=== PATIENT | female | born 1985 ===

== ENCOUNTER 2021-06-29 20:54 | Emergency (ER) | payer MEDICAID, SELFPAY ==
--- NOTE | ~2021-06-29 | XR_ITS ---
EXAMINATION: XR CHEST CLINICAL INFORMATION: Shortness of breath COMPARISON: 11/16/2016 TECHNIQUE: Frontal view of the chest was obtained. FINDINGS: Lung volumes are low. There is bronchovascular crowding but no focal consolidation or mass. No pleural effusion or pneumothorax. Cardiac mediastinal silhouette within normal limits for the lung volumes. XR/XR chest 1V IMPRESSION: Low lung volumes but no acute pulmonary disease.
[2021-06-29 21:00] VITALS: BP 145/85; PULSE 113; RESP 18; TEMP 36.9; O2SAT 95; BMI 52.7
[2021-06-29 21:51] LABS: Influenza A PCR NEGATIVE (Negative); Influenza B PCR NEGATIVE (Negative); Resp Syncy Virus RNA Qual PCR NEGATIVE (Negative)
[2021-06-29 21:52] LABS: SARS COV2 PCR INHOUSE POSITIVE (Negative)
[2021-06-30 00:24] VITALS: BP 135/70; PULSE 108; RESP 20; TEMP 38; O2SAT 98
[2021-06-30] MEDS: Acetaminophen 325 MG TABLET 975 MG PO (00:26)
--- NOTE | 2021-06-30 00:39 | ED_ITS ---
HPI - URI/Sore Throat General Chief Complaint: Upper Respiratory Symptoms Stated Complaint: fever, stuffy nose, stomach pain Time Seen by Provider: 06/30/21 00:20 Source: patient Mode of arrival: ambulatory Limitations: no limitations History of Present Illness HPI Narrative: 36-year-old female who previously healthy here with reports of cough, sore throat, subjective fevers, headache, body aches malaise for 2 days. Patient received Moderna vaccine times. No difficulty breathing, chest pain, leg swelling or pain. Related Data Allergies Allergy/AdvReac Type Severity Reaction Status Date / Time No Known Allergies Allergy Verified 06/29/21 21:00 Review of Systems Review of Systems: Yes all other systems are reviewed and are negative Constitutional: Constitutional: Reports no additional constitutional complaints, Reports body ache(s), Reports chills, Reports fever(s), Reports headache(s), Reports malaise and Denies weakness Eyes: Eyes: Reports no additional eye complaints and Denies change in vision ENT: Reports system reviewed and no additional complaints, except as documented, Denies dizziness, Reports headache(s), Denies nasal congestion, Denies nasal discharge, Denies neck pain and Reports sore throat Cardiovascular: Cardiovascular: Reports no additional cardiovascular complaints, Denies chest pain, Denies leg edema and Denies dyspnea Respiratory: Respiratory: Reports no additional respiratory complaints, Reports cough and Denies dyspnea Gastrointestinal: Gastrointestinal: Reports no additional gastrointestinal complaints, Denies abdominal pain, Denies diarrhea, Denies nausea and Denies vomiting Genitourinary: Genitourinary: Reports no additional female genitourinary complaints and Denies urinary incontinence Musculoskeletal: Musculoskeletal: Reports no additional musculoskeletal complaints, Denies back pain, Denies arthralgias, Denies joint swelling, Denies neck pain, Denies numbness and Denies tingling Integumentary/Breasts: Skin/Breast: Reports system reviewed and no additional complaints, except as docu and Denies rash Neurologic: Denies Abnormal speech present, Denies dizziness, Reports headache(s), Denies numbness, Denies tingling and Denies weakness PMFSH Past Medical History Attestation statement: The following information was validated with the patient. Source: old records reviewed and nursing notes reviewed Social History Social History Advance Directives: No Advance Directives Information Provided: No Physical Exam Vital Signs: Vital Signs: Last Vital Signs Temp 100.4 F 06/30/21 00:24 Pulse 108 H 06/30/21 00:24 Resp 20 06/30/21 00:24 BP 135/70 06/30/21 00:24 Pulse Ox 98 06/30/21 00:24 BMI result Body Mass Index 52.7 Const: General: cooperative, healthy appearing, comfortable and no acute distress Orientation/consciousness: patient oriented x3 Limitations: no limitations HENMT: Head: Yes normal to inspection Ears: hearing grossly normal bilaterally General nose exam: Normal external nose present Face and sinus: Yes normal facial exam Mouth: Normal oral and palatal mucosa present Throat: Yes posterior oropharynx normal Eyes: General: appearance normal, both eyes and all related structures Pupils: Equal, round and reactive pupils present Neck: Neck: Yes normal visual inspection Chest: Chest palpation & inspection: normal inspection of the chest Resp: Effort & Inspection: normal respiratory effort Auscultation: clear to auscultation bilaterally Cardio: Rate: tachycardic (mild tachycardic) Rhythm: regular rhythm Peripheral pulses: Peripheral pulses 2+ throughout GI: Inspection: Yes normal to inspection Palpation (GI): Soft to palpation and nontender Auscultation: normal bowel sounds Back/Spine/Pelvis: Thoracic/Lumbar Spine: thoracic and lumbar spine normal to inspection Skin: General skin exam: no rashes or lesions noted Neuro: General: patient oriented x3, no focal motor deficits and normal sensation to monofilament Cranial nerves: Yes Equal, round and reactive pupils present Cognition (Neuro): normal cognition Speech: No Abnormal speech present Gait exam (Neuro): Normal gait present Motor exam (neuro): 5/5 motor strength present throughout Extrem: General: Yes normal to inspection, Yes no pedal edema and Yes no calf tenderness Course Course Course Narrative: 36 yo female here with cough, sore throat, headache, subjective fevers, chills, body aches, malaise x 2 days. Patient has low-grade fever mild tachycardia on arrival. Will give Tylenol. Rapid COVID is positive. Chest x-ray shows no acute finding. No hypoxia, tachypnea. No reports of chest pain or difficulty breathing. Lung sounds are clear throughout Reviewed worrisome signs and symptoms of when to return to the emergency department. Comfortable discharge home. MDM - URI/Sore Throat Medical Records Attestation: I reviewed the patient's medical records. Lab Data Attestation: I reviewed the patient's lab results. Labs: Lab Results 06/29/21 Range/Units 21:07 Influenza Type A (PCR) NEGATIVE (Negative) Influenza Type B (PCR) NEGATIVE (Negative) RSV RNA Qual (PCR) NEGATIVE (Negative) SARS-CoV-2 RNA (RT-PCR) POSITIVE A (Negative) Discharge Plan Discharge Clinical Impression: COVID-19 Patient Disposition: Home, Self-Care Instructions: COVID-19 (Coronavirus Disease 2019) (ED) Additional Instructions: Cuarentena por un total de 10 d?as desde la aparici?n de los s?ntomas. Alternar motrin o tylenol para el dolor o la fiebre. Aumente los l?quidos, descanse. Regrese por falta de aire o dolor en el pecho. Referrals: ED Physician,Generic [Physician] - 2 days Stand Alone Forms: Work/School Release Interventions: ED Discharge Assessment Last Done: 06/30/21 00:41 Print Language: Turkmen
== END 2021-06-30 00:55 | disposition home or self-care (01) ==
PROVIDERS: Emergency Provider Internal Medicine
DX: U07.1 COVID-19 (principal)
CPT/HCPCS: 0241U; 71045; 99283

== ENCOUNTER 2022-09-19 13:14 | Emergency (ER) | payer OTHER, SELFPAY ==
--- NOTE | ~2022-09-19 | XR_ITS ---
EXAMINATION: XR CHEST CLINICAL INFORMATION: Chest pain, shortness of breath. COMPARISON: 07/17/2021 chest radiograph. TECHNIQUE: 2 views of the chest were obtained. FINDINGS: No significant abnormality is noted involving the heart, lungs, mediastinum, bony thorax or soft tissues. XR/XR chest 2V IMPRESSION: No acute cardiopulmonary process.
--- NOTE | 2022-09-19 13:24 | ED_ITS ---
HPI - Chest Pain General Chief Complaint: Chest Pain Stated Complaint: sharp pain in chest + arm pain Related Data Allergies Allergy/AdvReac Type Severity Reaction Status Date / Time No Known Allergies Allergy Verified 06/29/21 21:00 [facility] Social History Social History Advance Directives: No Advance Directives Information Provided: No Physical Exam Vital Signs: Vital Signs: Last Vital Signs Temp 98.2 F 09/19/22 13:30 Pulse 110 H 09/19/22 13:30 Resp 18 09/19/22 13:30 BP 168/96 H 09/19/22 13:30 Pulse Ox 94 09/19/22 13:30 O2 Del Method Room Air 09/19/22 13:30 BMI result Body Mass Index 49.6 Course Course Course Narrative: RME--37yo F w/ PMHx asthma c/o left upper chest pain x1 week with pedal edema and SOB. Pain constant x3 days Tachycardic 109 in triage, +b/l pedal edema, Lungs CTA EKG, Labs, CXR, COVID ordered Medical Decision Making Lab Data 09/19/22 16:49 09/19/22 16:49 Labs: Lab Results 09/19/22 09/19/22 09/19/22 Range/Units 14:07 14:07 16:49 WBC 8.8 (4.8-10.8) X10*3/uL RBC 4.62 (4.20-5.50) X10*6/uL Hgb 12.3 (12.0-16.0) g/dl Hct 38.4 (37.0-47.0) % MCV 83.1 (80.0-98.0) fL MCH 26.6 L (27.0-33.0) pg MCHC 32.0 (31.0-35.0) g/dl RDW 13.5 (11.0-16.0) % Plt Count 224 (160-400) X10*3/uL MPV 12.2 (9.4-12.3) fL Immature Gran % (Auto) 0.8 H (0.0-0.4) % Neut % (Auto) 64.4 (45-73) % Lymph % (Auto) 25.0 (20-40) % [place] % (Auto) 7.6 (2-11) % Eos % (Auto) 1.9 (0-4) % Baso % (Auto) 0.3 (0-2) % Lymph # (Auto) 2.2 (1.2-4.9) X10*3/uL [place] # (Auto) 0.7 (0.1-1.2) X10*3/uL Eos # (Auto) 0.2 (0.0-0.4) X10*3/uL Baso # (Auto) 0.0 (0.0-0.2) X10*3/uL Abs Immat Gran (auto) 0.07 H (0.00-0.03) X10*3/uL Absolute Neuts (auto) 5.6 (2.0-8.3) x10*3/uL Absolute Nucleated RBC 0.000 (0.0-0.012) X10*3/uL Nucleated RBC % (auto) 0.0 (0.0-0.2) /100WBC PT (10.0-13.1) SEC INR (0.9-1.1) Sodium (135-145) mmol/L Potassium (3.3-5.1) mmol/L Chloride (96-108) mmol/L Carbon Dioxide (22-29) mmol/L Anion Gap (12-20) BUN (9-16) mg/dL Creatinine (0.5-1.4) mg/dL Estim Creat Clear Calc Estimated GFR Random Glucose (60-115) mg/dL Calcium (8.4-10.2) mg/dL Total Bilirubin (0.0-1.0) mg/dL Direct Bilirubin (0.0-0.5) mg/dL AST (5-31) U/L ALT (0-31) U/L Alkaline Phosphatase (39-117) U/L Troponin I High Sens (<3.5-17.0) ng/L B-Natriuretic Peptide (<100) pg/mL Total Protein (6.5-8.0) g/dL Albumin (3.5-5.0) g/dL COVID-19 (CHANEL) Negative (Negative) COVID-19 Clin Com See Note Influenza Type A (BARRETT) Negative (Negative) Influenza Type B (BARRETT) Negative (Negative) Influenza A & B Note See Note 09/19/22 09/19/22 09/19/22 Range/Units 16:49 16:49 16:49 WBC (4.8-10.8) X10*3/uL RBC (4.20-5.50) X10*6/uL Hgb (12.0-16.0) g/dl Hct (37.0-47.0) % MCV (80.0-98.0) fL MCH (27.0-33.0) pg MCHC (31.0-35.0) g/dl RDW (11.0-16.0) % Plt Count (160-400) X10*3/uL MPV (9.4-12.3) fL Immature Gran % (Auto) (0.0-0.4) % Neut % (Auto) (45-73) % Lymph % (Auto) (20-40) % [place] % (Auto) (2-11) % Eos % (Auto) (0-4) % Baso % (Auto) (0-2) % Lymph # (Auto) (1.2-4.9) X10*3/uL [place] # (Auto) (0.1-1.2) X10*3/uL Eos # (Auto) (0.0-0.4) X10*3/uL Baso # (Auto) (0.0-0.2) X10*3/uL Abs Immat Gran (auto) (0.00-0.03) X10*3/uL Absolute Neuts (auto) (2.0-8.3) x10*3/uL Absolute Nucleated RBC (0.0-0.012) X10*3/uL Nucleated RBC % (auto) (0.0-0.2) /100WBC PT 11.7 (10.0-13.1) SEC INR 1.0 (0.9-1.1) Sodium 139 (135-145) mmol/L Potassium 4.2 (3.3-5.1) mmol/L Chloride 105 (96-108) mmol/L Carbon Dioxide 25 (22-29) mmol/L Anion Gap 13 (12-20) BUN 12 (9-16) mg/dL Creatinine 0.77 (0.5-1.4) mg/dL Estim Creat Clear Calc 129.8 Estimated GFR > 60 Random Glucose 155 H (60-115) mg/dL Calcium 8.7 (8.4-10.2) mg/dL Total Bilirubin 0.5 (0.0-1.0) mg/dL Direct Bilirubin < 0.2 (0.0-0.5) mg/dL AST 14 (5-31) U/L ALT 18 (0-31) U/L Alkaline Phosphatase 81 (39-117) U/L Troponin I High Sens < 3.5 (<3.5-17.0) ng/L B-Natriuretic Peptide (<100) pg/mL Total Protein 6.9 (6.5-8.0) g/dL Albumin 4.0 (3.5-5.0) g/dL COVID-19 (CHANEL) (Negative) COVID-19 Clin Com Influenza Type A (BARRETT) (Negative) Influenza Type B (BARRETT) (Negative) Influenza A & B Note 09/19/22 Range/Units 16:49 WBC (4.8-10.8) X10*3/uL RBC (4.20-5.50) X10*6/uL Hgb (12.0-16.0) g/dl Hct (37.0-47.0) % MCV (80.0-98.0) fL MCH (27.0-33.0) pg MCHC (31.0-35.0) g/dl RDW (11.0-16.0) % Plt Count (160-400) X10*3/uL MPV (9.4-12.3) fL Immature Gran % (Auto) (0.0-0.4) % Neut % (Auto) (45-73) % Lymph % (Auto) (20-40) % [place] % (Auto) (2-11) % Eos % (Auto) (0-4) % Baso % (Auto) (0-2) % Lymph # (Auto) (1.2-4.9) X10*3/uL [place] # (Auto) (0.1-1.2) X10*3/uL Eos # (Auto) (0.0-0.4) X10*3/uL Baso # (Auto) (0.0-0.2) X10*3/uL Abs Immat Gran (auto) (0.00-0.03) X10*3/uL Absolute Neuts (auto) (2.0-8.3) x10*3/uL Absolute Nucleated RBC (0.0-0.012) X10*3/uL Nucleated RBC % (auto) (0.0-0.2) /100WBC PT (10.0-13.1) SEC INR (0.9-1.1) Sodium (135-145) mmol/L Potassium (3.3-5.1) mmol/L Chloride (96-108) mmol/L Carbon Dioxide (22-29) mmol/L Anion Gap (12-20) BUN (9-16) mg/dL Creatinine (0.5-1.4) mg/dL Estim Creat Clear Calc Estimated GFR Random Glucose (60-115) mg/dL Calcium (8.4-10.2) mg/dL Total Bilirubin (0.0-1.0) mg/dL Direct Bilirubin (0.0-0.5) mg/dL AST (5-31) U/L ALT (0-31) U/L Alkaline Phosphatase (39-117) U/L Troponin I High Sens (<3.5-17.0) ng/L B-Natriuretic Peptide < 10 (<100) pg/mL Total Protein (6.5-8.0) g/dL Albumin (3.5-5.0) g/dL COVID-19 (CHANEL) (Negative) COVID-19 Clin Com Influenza Type A (BARRETT) (Negative) Influenza Type B (BARRETT) (Negative) Influenza A & B Note Discharge Plan Discharge Clinical Impression: Shortness of breath Patient Disposition: Elopement Discharge Date/Time: 09/19/22 19:39
--- NOTE | 2022-09-19 13:28 | ECG_ITS ---
Test Reason : cp Blood Pressure : / mmHG Vent. Rate : 095 BPM Atrial Rate : 095 BPM P-R Int : 148 ms QRS Dur : 076 ms QT Int : 336 ms P-R-T Axes : 048 033 016 degrees QTc Int : 422 ms Normal sinus rhythm Normal ECG No previous ECGs available Referred By: Amarilis Antoine Electronically Signed By:KARINA CORDOBA MD
[2022-09-19 13:30] VITALS: BP 168/96; PULSE 110; RESP 18; TEMP 36.8; O2SAT 94; BMI 49.6
[2022-09-19 14:28] LABS: IDNOW Serial# 9DB6401D
[2022-09-19 14:29] LABS: COVID-19 Test Negative (Negative); IDNOW Serial# BCCEAD1C; Influenza A Negative (Negative); Influenza B2 Negative (Negative)
[2022-09-19 16:54] LABS: MANUAL DIFF FLAG NO
[2022-09-19 16:56] LABS: Basophils Percent Auto 0.3 % (0-2); Eosinophils Absolute Auto 0.2 X10*3/uL (0.0-0.4); Eosinophils Percent Auto 1.9 % (0-4); Hematocrit 38.4 % (37.0-47.0); Hemoglobin 12.3 g/dl (12.0-16.0); Imm Gran Abs Auto 0.07 X10*3/uL (0.00-0.03); Imm Gran Pct Auto 0.8 % (0.0-0.4); Lymphocytes Absolute Auto 2.2 X10*3/uL (1.2-4.9); Mean Corpuscular Hemoglobin 26.6 pg (27.0-33.0); Mean Corpuscular Volume 83.1 fL (80.0-98.0); Mean Platelet Volume 12.2 fL (9.4-12.3); Monocytes Absolute Auto 0.7 X10*3/uL (0.1-1.2); Monocytes Percent Auto 7.6 % (2-11); Neutrophils Absolute Auto 5.6 x10*3/uL (2.0-8.3); Neutrophils Percent Auto 64.4 % (45-73); Platelet Count 224 X10*3/uL (160-400); Red Blood Count 4.62 X10*6/uL (4.20-5.50); Red Cell Distribution Width 13.5 % (11.0-16.0); White Blood Count 8.8 X10*3/uL (4.8-10.8)
[2022-09-19 17:01] LABS: Prothrombin Time 11.7 SEC (10.0-13.1)
[2022-09-19 17:15] LABS: Alanine Aminotransferase 18 U/L (0-31); Alkaline Phosphatase 81 U/L (39-117); Anion Gap 13 (12-20); Aspartate Amino Transferase 14 U/L (5-31); Bilirubin Direct < 0.2 mg/dL (0.0-0.5); Bilirubin Total 0.5 mg/dL (0.0-1.0); Blood Urea Nitrogen 12 mg/dL (9-16); Calcium 8.7 mg/dL (8.4-10.2); Carbon Dioxide 25 mmol/L (22-29); Chloride 105 mmol/L (96-108); Creatinine Clr Calc Pharmacy 129.8; Estimated Glomerular Filt Rate > 60; Glucose Random 155 mg/dL (60-115); Potassium 4.2 mmol/L (3.3-5.1); Sodium 139 mmol/L (135-145); Total Protein 6.9 g/dL (6.5-8.0)
[2022-09-19 17:17] LABS: B Type Natriuretic Peptide < 10 pg/mL (<100)
[2022-09-19 17:22] LABS: Troponin-I High Sensitivity < 3.5 ng/L (<3.5-17.0)
== END 2022-09-19 19:39 | disposition left against medical advice (07) ==
PROVIDERS: Physician Assistant; Emergency Provider Emergency Medicine
DX: R60.0 Localized edema (principal); R06.02 Shortness of breath; R00.0 Tachycardia, unspecified; Z20.822 Contact with and (suspected) exposure to COVID-19
CPT/HCPCS: 36415; 71046; 80048; 80076; 83880; 84484; 85025; 85610; 87502; 87635; 93005; 99283

== ENCOUNTER 2023-01-15 22:44 | Emergency (ER) | payer MEDICAID, SELFPAY ==
--- NOTE | ~2023-01-15 | XR_ITS ---
EXAMINATION: XR CHEST CLINICAL INFORMATION: Chest pain. COMPARISON: Chest radiograph 09/19/2022. TECHNIQUE: 2 views of the chest were obtained. FINDINGS: Stable prominence of the cardiomediastinal silhouette. Low lung volumes with diffuse bronchovascular crowding. No focal airspace opacity, pleural effusion or pneumothorax. No acute osseous findings. The visualized upper abdomen is within normal limits. XR/XR chest 2V IMPRESSION: 1. Low lung volumes with bronchovascular crowding. 2. No focal airspace opacity. 3. No pleural effusion or pneumothorax.
[2023-01-15 22:46] VITALS: BP 183/97; PULSE 96; RESP 18; TEMP 36.3; O2SAT 95; BMI 52.3
--- NOTE | 2023-01-15 22:58 | ECG_ITS ---
Test Reason : HEADACHE Blood Pressure : / mmHG Vent. Rate : 098 BPM Atrial Rate : 098 BPM P-R Int : 144 ms QRS Dur : 070 ms QT Int : 340 ms P-R-T Axes : 027 010 008 degrees QTc Int : 434 ms Normal sinus rhythm Minimal voltage criteria for LVH, may be normal variant ( R in aVL ) Borderline ECG When compared with ECG of 19-SEP-2022 13:54, No significant change was found Referred By: Generic ED Physician Electronically Signed By:Alvin Luke
--- NOTE | 2023-01-15 23:03 | PC.NURSE ---
Rapid neuro exam by nurse within normal limits. certified endoscopy technician (Hannah Caro) aware of patient's multiple complaints.
[2023-01-15 23:18] LABS: MANUAL DIFF FLAG NO
[2023-01-15 23:19] LABS: Basophils Percent Auto 0.4 % (0-2); Eosinophils Absolute Auto 0.1 X10*3/uL (0.0-0.4); Eosinophils Percent Auto 1.7 % (0-4); Hematocrit 41.3 % (37.0-47.0); Hemoglobin 13.4 g/dl (12.0-16.0); Imm Gran Abs Auto 0.03 X10*3/uL (0.00-0.03); Imm Gran Pct Auto 0.4 % (0.0-0.4); Lymphocytes Absolute Auto 3.2 X10*3/uL (1.2-4.9); Lymphocytes Percent Auto 37.5 % (20-40); Mean Corpuscular HGB Conc 32.4 g/dl (31.0-35.0); Mean Corpuscular Hemoglobin 27.2 pg (27.0-33.0); Mean Corpuscular Volume 83.8 fL (80.0-98.0); Mean Platelet Volume 11.5 fL (9.4-12.3); Monocytes Absolute Auto 0.7 X10*3/uL (0.1-1.2); Monocytes Percent Auto 8.3 % (2-11); Neutrophils Absolute Auto 4.4 x10*3/uL (2.0-8.3); Neutrophils Percent Auto 51.7 % (45-73); Platelet Count 212 X10*3/uL (160-400); Red Blood Count 4.93 X10*6/uL (4.20-5.50); Red Cell Distribution Width 13.9 % (11.0-16.0); White Blood Count 8.4 X10*3/uL (4.8-10.8)
--- NOTE | 2023-01-15 23:23 | MHC.EDTECH ---
PATIENT EKG TAKEN AND WAS READ BY PROVIDER ,BLOOD DRAWN AND SENT TO LAB ,POINT OF CARE CHECK ,RESULT WAS 151
[2023-01-15 23:26] LABS: Prothrombin Time 11.5 SEC (10.0-13.1)
[2023-01-15 23:28] LABS: Glucose, Whole Blood 151 mg/dL (60-115)
[2023-01-15 23:29] LABS: Partial Thromboplastin Time 28.9 SEC (26.0-36.4)
[2023-01-15 23:33] LABS: Anion Gap 12 (12-20); Blood Urea Nitrogen 18 mg/dL (9-16); Calcium 9.2 mg/dL (8.4-10.2); Carbon Dioxide 27 mmol/L (22-29); Chloride 102 mmol/L (96-108); Creatinine Clr Calc Pharmacy 135.9; Estimated Glomerular Filt Rate > 60; Glucose Random 143 mg/dL (60-115); Potassium 4.2 mmol/L (3.3-5.1); Sodium 137 mmol/L (135-145)
[2023-01-15 23:40] LABS: Troponin-I High Sensitivity < 2.7 ng/L (<3.5-17.0)
[2023-01-16 02:31] VITALS: BP 147/89; PULSE 86; RESP 14; TEMP 36.7; O2SAT 99
--- NOTE | 2023-01-16 02:41 | PC.NURSE ---
Pt aox4 resting at the beside. Reports significant life stressors and increased depression since grandmother last month. No apparent distress noted. Reports chest pain and headache, 02/04. Urine sample collected and sent. Pending physician vanessa. Pt aware.
[2023-01-16 02:45] LABS: Appearance Urine Clear; Color Urine Yellow; Glucose Urine UA Negative (Negative); Leukocyte Esterase Urine Negative (Negative); Nitrite Urine Negative (Negative); PH 5.5 (5.0-9.0); UMIC TRIGGER UACC YES; Urine Blood Large (3+) (Negative); Urine Ketones Negative (Negative); Urine Protein Negative (Neg-Trace)
[2023-01-16 02:48] LABS: UPreg QC Valid YES; Urine Pregnancy NEGATIVE (NEGATIVE)
[2023-01-16 02:54] LABS: Bacteria Urine 2+ (None Seen); Hyaline Casts Urine 0-2 /LPF (0-2); RBC Urine 0-2 /HPF (0-2); WBC Urine 0-5 /HPF (0-5)
--- NOTE | 2023-01-16 03:08 | ED.GENADULT ---
HPI - General Adult General Chief complaint: General Medical Stated complaint: Headache/Dizziness post traveling Time Seen by Provider: 01/16/23 03:07 Source: patient Mode of arrival: ambulatory Limitations: no limitations History of Present Illness HPI narrative: patient's history of frequent headaches under increased stress as her grandmother last week complaining of frontal headache with slight nausea and vomiting no fever no chills no head injury headache feel like throbbing Feel like exploding inside also has poor sleep worrying too much also complaining of chest pain and neck pain no shortness of breath patient recently traveled to [place] no leg pain patient does have history of migraine but this headache feels stronger than before Related Data Previous Rx's Medication Instructions Recorded llocvptdtc-wppckpebxlrux-qrvldrgn 1 cap PO Q6H PRN headache #20 caps 01/16/23 50 mg-300 mg-40 mg capsule (Fioricet) sumatriptan succinate 50 mg tablet 50 mg PO Q2H PRN migraine headache 01/16/23 (Imitrex) #10 tabs Allergies Allergy/AdvReac Type Severity Reaction Status Date / Time No Known Allergies Allergy Verified 01/15/23 22:53 Review of Systems Review of Systems: Yes all other systems are reviewed and are negative PMFSH Social History Social History Smoked in Last 30 Days: No Use of substances other than those prescribed or required for medical reasons: No Advance Directives: No Advance Directives Information Provided: Yes Patient : No Physical Exam ED Vital Signs: Vital Signs - 24 hr 01/15/23 22:46 01/16/23 02:31 01/16/23 04:28 Temperature 97.4 F 98.0 F 98.4 F Pulse Rate 96 86 81 Respiratory Rate 18 14 12 Blood Pressure 183/97 H 147/89 H 137/79 Pulse Oximetry 95 99 100 Oxygen Delivery Method Room Air Room Air Room Air 01/16/23 05:40 Temperature 98.4 F Pulse Rate 73 Respiratory Rate 17 Blood Pressure 135/88 Pulse Oximetry 99 Oxygen Delivery Method Room Air BMI result Body Mass Index 52.3 Appearance: Alert. Oriented X3. No acute distress. Eyes: PERRLA, No Nystagmus ENT: Pharynx normal. Oral Mucosa moist no temporal artery tenderness Neck: Normal inspection. Neck supple. CVS: Normal heart rate and rhythm. Pulses normal. Respiratory: No respiratory distress. Equal air entry bilateral, no wheezing/rales/rhonchi Abdomen: Soft and nontender. Bowel sounds are present, no mass palpable, no CVA tenderness Skin: Skin warm and dry. Normal skin color. Normal skin turgor. Extremities: No lower extremity edema. No calf tenderness Neuro: Oriented X 3. No motor deficit. No sensory deficit.No cerebellar signs , cranial nerves II-XII intact Medications Administered Discontinued Medications Generic Name Dose Route Start Last Admin Trade Name Freq PRN Reason Stop Dose Admin Acetaminophen/Butalbital/Caffeine 1 tab 01/16/23 03:27 01/16/23 03:36 Butalb/Acetamin/Caff 50/325/40 Tablet PO 01/16/23 03:28 1 tab ONCE ONE Administration Sumatriptan Succinate 6 mg 01/16/23 03:27 01/16/23 03:37 Sumatriptan Succinate 6 Mg/0.5 Ml Vial SUBCUT 01/16/23 03:28 6 mg ONCE ONE Administration Medical Decision Making Medical Decision Making [facility] Narrative: patient clinically with complex migraine will try Imitrex and Fioricet vitals are stable labs as above patient improved after Imitrex feeling much better will discharge patient home on Imitrex and Fioricet Lab Data [facility] Lab Attestation statement: I reviewed the patient's lab results. 01/15/23 23:13 01/15/23 23:14 Labs: Lab Results 01/15/23 01/15/23 01/15/23 Range/Units 23:07 23:13 23:13 WBC 8.4 (4.8-10.8) X10*3/uL RBC 4.93 (4.20-5.50) X10*6/uL Hgb 13.4 (12.0-16.0) g/dl Hct 41.3 (37.0-47.0) % MCV 83.8 (80.0-98.0) fL MCH 27.2 (27.0-33.0) pg MCHC 32.4 (31.0-35.0) g/dl RDW 13.9 (11.0-16.0) % Plt Count 212 (160-400) X10*3/uL MPV 11.5 (9.4-12.3) fL Immature Gran % (Auto) 0.4 (0.0-0.4) % Neut % (Auto) 51.7 (45-73) % Lymph % (Auto) 37.5 (20-40) % [place] % (Auto) 8.3 (2-11) % Eos % (Auto) 1.7 (0-4) % Baso % (Auto) 0.4 (0-2) % Lymph # (Auto) 3.2 (1.2-4.9) X10*3/uL [place] # (Auto) 0.7 (0.1-1.2) X10*3/uL Eos # (Auto) 0.1 (0.0-0.4) X10*3/uL Baso # (Auto) 0.0 (0.0-0.2) X10*3/uL Abs Immat Gran (auto) 0.03 (0.00-0.03) X10*3/uL Absolute Neuts (auto) 4.4 (2.0-8.3) x10*3/uL Absolute Nucleated RBC 0.000 (0.0-0.012) X10*3/uL Nucleated RBC % (auto) 0.0 (0.0-0.2) /100WBC PT 11.5 (10.0-13.1) SEC INR 1.0 (0.9-1.1) APTT 28.9 (26.0-36.4) SEC Sodium (135-145) mmol/L Potassium (3.3-5.1) mmol/L Chloride (96-108) mmol/L Carbon Dioxide (22-29) mmol/L Anion Gap (12-20) BUN (9-16) mg/dL Creatinine (0.5-1.4) mg/dL Estim Creat Clear Calc Estimated GFR POC Glucose 151 H (60-115) mg/dL Random Glucose (60-115) mg/dL Calcium (8.4-10.2) mg/dL Total Creatine Kinase (26-140) U/L Troponin I High Sens (<3.5-17.0) ng/L Urine Color Urine Appearance Urine pH (5.0-9.0) Ur Specific [place] (1.005-1.025) Urine Protein (Neg-Trace) mg/dL Urine Glucose (UA) (Negative) mg/dL Urine Ketones (Negative) mg/dL Urine Blood (Negative) Urine Nitrite (Negative) Ur Leukocyte Esterase (Negative) Urine RBC (0-2) /HPF Urine WBC (0-5) /HPF Ur Squamous Epith Cells (0-2) /HPF Urine Bacteria (None Seen) Hyaline Casts (0-2) /LPF Urine Test (NEGATIVE) 01/15/23 01/15/23 01/16/23 Range/Units 23:13 23:14 02:36 WBC (4.8-10.8) X10*3/uL RBC (4.20-5.50) X10*6/uL Hgb (12.0-16.0) g/dl Hct (37.0-47.0) % MCV (80.0-98.0) fL MCH (27.0-33.0) pg MCHC (31.0-35.0) g/dl RDW (11.0-16.0) % Plt Count (160-400) X10*3/uL MPV (9.4-12.3) fL Immature Gran % (Auto) (0.0-0.4) % Neut % (Auto) (45-73) % Lymph % (Auto) (20-40) % [place] % (Auto) (2-11) % Eos % (Auto) (0-4) % Baso % (Auto) (0-2) % Lymph # (Auto) (1.2-4.9) X10*3/uL [place] # (Auto) (0.1-1.2) X10*3/uL Eos # (Auto) (0.0-0.4) X10*3/uL Baso # (Auto) (0.0-0.2) X10*3/uL Abs Immat Gran (auto) (0.00-0.03) X10*3/uL Absolute Neuts (auto) (2.0-8.3) x10*3/uL Absolute Nucleated RBC (0.0-0.012) X10*3/uL Nucleated RBC % (auto) (0.0-0.2) /100WBC PT (10.0-13.1) SEC INR (0.9-1.1) APTT (26.0-36.4) SEC Sodium 137 (135-145) mmol/L Potassium 4.2 (3.3-5.1) mmol/L Chloride 102 (96-108) mmol/L Carbon Dioxide 27 (22-29) mmol/L Anion Gap 12 (12-20) BUN 18 H (9-16) mg/dL Creatinine 0.76 (0.5-1.4) mg/dL Estim Creat Clear Calc 135.9 Estimated GFR > 60 POC Glucose (60-115) mg/dL Random Glucose 143 H (60-115) mg/dL Calcium 9.2 (8.4-10.2) mg/dL Total Creatine Kinase 428 H (26-140) U/L Troponin I High Sens < 2.7 (<3.5-17.0) ng/L Urine Color Yellow Urine Appearance Clear Urine pH 5.5 (5.0-9.0) Ur Specific [place] 1.020 (1.005-1.025) Urine Protein Negative (Neg-Trace) mg/dL Urine Glucose (UA) Negative (Negative) mg/dL Urine Ketones Negative (Negative) mg/dL Urine Blood Large (3+) H (Negative) Urine Nitrite Negative (Negative) Ur Leukocyte Esterase Negative (Negative) Urine RBC 0-2 (0-2) /HPF Urine WBC 0-5 (0-5) /HPF Ur Squamous Epith Cells 6-10 (0-2) /HPF Urine Bacteria 2+ (None Seen) Hyaline Casts 0-2 (0-2) /LPF Urine Test (NEGATIVE) 01/16/23 Range/Units 02:36 WBC (4.8-10.8) X10*3/uL RBC (4.20-5.50) X10*6/uL Hgb (12.0-16.0) g/dl Hct (37.0-47.0) % MCV (80.0-98.0) fL MCH (27.0-33.0) pg MCHC (31.0-35.0) g/dl RDW (11.0-16.0) % Plt Count (160-400) X10*3/uL MPV (9.4-12.3) fL Immature Gran % (Auto) (0.0-0.4) % Neut % (Auto) (45-73) % Lymph % (Auto) (20-40) % [place] % (Auto) (2-11) % Eos % (Auto) (0-4) % Baso % (Auto) (0-2) % Lymph # (Auto) (1.2-4.9) X10*3/uL [place] # (Auto) (0.1-1.2) X10*3/uL Eos # (Auto) (0.0-0.4) X10*3/uL Baso # (Auto) (0.0-0.2) X10*3/uL Abs Immat Gran (auto) (0.00-0.03) X10*3/uL Absolute Neuts (auto) (2.0-8.3) x10*3/uL Absolute Nucleated RBC (0.0-0.012) X10*3/uL Nucleated RBC % (auto) (0.0-0.2) /100WBC PT (10.0-13.1) SEC INR (0.9-1.1) APTT (26.0-36.4) SEC Sodium (135-145) mmol/L Potassium (3.3-5.1) mmol/L Chloride (96-108) mmol/L Carbon Dioxide (22-29) mmol/L Anion Gap (12-20) BUN (9-16) mg/dL Creatinine (0.5-1.4) mg/dL Estim Creat Clear Calc Estimated GFR POC Glucose (60-115) mg/dL Random Glucose (60-115) mg/dL Calcium (8.4-10.2) mg/dL Total Creatine Kinase (26-140) U/L Troponin I High Sens (<3.5-17.0) ng/L Urine Color Urine Appearance Urine pH (5.0-9.0) Ur Specific [place] (1.005-1.025) Urine Protein (Neg-Trace) mg/dL Urine Glucose (UA) (Negative) mg/dL Urine Ketones (Negative) mg/dL Urine Blood (Negative) Urine Nitrite (Negative) Ur Leukocyte Esterase (Negative) Urine RBC (0-2) /HPF Urine WBC (0-5) /HPF Ur Squamous Epith Cells (0-2) /HPF Urine Bacteria (None Seen) Hyaline Casts (0-2) /LPF Urine Test NEGATIVE (NEGATIVE) Discharge Plan Discharge Clinical Impression: Headache, migraine Patient Disposition: Home, Self-Care Instructions: Migraine Headache (ED) Additional Instructions: rest at home Imitrex as prescribed 1 tablet at onset of headache may repeat in 2 hours maximum 2 tablets in 24 hours Fioricet 1 tablet every 6-8 hours as needed. Descansar en casa Imitrex seg?n prescripci?n 1 comprimido al inicio del dolor de gabby puede repetirse en 2 horas m?ximo 2 comprimidos en 24 horas Fioricet 1 comprimido cada 6-8 horas seg?n necesidad. Prescriptions: New sumatriptan succinate [Imitrex] 50 mg tablet 50 mg PO Q2H PRN (Reason: migraine headache) Qty: 10 0RF Rx Instructions: do not exceed 2 doses per 24 hrs [id number] [Fioricet] 50-300-40 mg capsule 1 cap PO Q6H PRN (Reason: headache) Qty: 20 0RF
--- NOTE | 2023-01-16 03:12 | PC.NURSE ---
Late entry: Pt reports starting a workout routine two days ago. Have noticed chest pain episodes during exertion and not at rest.
[2023-01-16] MEDS: Butalb/Acetamin/Caff 50/325/40 TABLET 1 TAB PO (03:36)
[2023-01-16] MEDS: SUMAtriptan succinate 6 MG/0.5 ML VIAL SUBCUT (03:37)
--- NOTE | 2023-01-16 03:47 | PC.NURSE ---
Pt medicated as ordered and tolerated well.
[2023-01-16 04:28] VITALS: BP 137/79; PULSE 81; RESP 12; TEMP 36.9; O2SAT 100
--- NOTE | 2023-01-16 04:29 | PC.NURSE ---
Pt aox4 resting at the bedside. Reports some relief from the pain medications but continues to have a headache, 02/04. Denies chest pain. NSR with elevated T wave on monitor with hr 86. VSS
[2023-01-16 05:40] VITALS: BP 135/88; PULSE 73; RESP 17; TEMP 36.9; O2SAT 99
== END 2023-01-16 06:00 | disposition home or self-care (01) ==
PROVIDERS: Emergency Provider Internal Medicine
DX: G43.909 Migraine, unspecified, not intractable, without status migrainosus (principal); R11.2 Nausea with vomiting, unspecified; R07.9 Chest pain, unspecified; M54.2 Cervicalgia
CPT/HCPCS: 36415; 71046; 80048; 81001; 81025; 82550; 82947; 84484; 85025; 85610; 85730; 93005; 96372; 99284; 99285; J3030

== ENCOUNTER → 2023-01-15 22:58 | Outpatient (BNV) | payer MEDICAID, SELFPAY | PROVIDERS: Emergency Provider Internal Medicine; Visit Provider Internal Medicine Cardiovascular Disease | DX: R51.9 Headache, unspecified (principal) | CPT/HCPCS: 93010 ==

== ENCOUNTER 2023-01-17 04:52 | Emergency (ER) | payer MEDICAID, SELFPAY ==
--- NOTE | 2023-01-17 | ECG_ITS ---
Test Reason : CHEST PAIN Blood Pressure : / mmHG Vent. Rate : 092 BPM Atrial Rate : 092 BPM P-R Int : 156 ms QRS Dur : 080 ms QT Int : 360 ms P-R-T Axes : 051 023 017 degrees QTc Int : 445 ms Normal sinus rhythm Normal ECG When compared with ECG of 15-JAN-2023 23:19, No significant change was found Referred By: Generic ED Physician Electronically Signed By:Alvin Luke
[2023-01-17 04:54] VITALS: BP 148/73; PULSE 100; RESP 20; TEMP 36.6; O2SAT 94; BMI 52.8
--- NOTE | 2023-01-17 05:27 | ED.CHESTPAIN ---
HPI - Chest Pain General Chief Complaint: Chest Pain Stated Complaint: Chest pain, difficulty breathing Time Seen by Provider: 01/17/23 05:26 Source: patient Mode of arrival: ambulatory Limitations: no limitations History of Present Illness HPI narrative: Patient with significant cardiac history was seen here yesterday for migraine headache and chest pain which is going on for last several weeks more pain in the left shoulder she was sleeping on the couch taking care of grandmother who . Pain increases on palpation Related Data Previous Rx's Medication Instructions Recorded otmokripfp-ekahnccodezii-xqyjpiey 1 cap PO Q6H PRN headache #20 caps 01/16/23 50 mg-300 mg-40 mg capsule (Fioricet) sumatriptan succinate 50 mg tablet 50 mg PO Q2H PRN migraine headache 01/16/23 (Imitrex) #10 tabs cyclobenzaprine 10 mg tablet 10 mg PO Q8H #20 tabs 01/17/23 ibuprofen 600 mg tablet 600 mg PO Q6H PRN fever or pain 01/17/23 #30 tabs Allergies Allergy/AdvReac Type Severity Reaction Status Date / Time No Known Allergies Allergy Verified 01/15/23 22:53 Review of Systems Review of Systems: Yes all other systems are reviewed and are negative [facility] Social History Social History Smoked in Last 30 Days: No Use of substances other than those prescribed or required for medical reasons: No Advance Directives: No Advance Directives Information Provided: Yes Patient : No Physical Exam Vital Signs: Vital Signs: Last Vital Signs Temp 97.8 F 01/17/23 04:54 Pulse 100 01/17/23 04:54 Resp 20 01/17/23 04:54 BP 148/73 H 01/17/23 04:54 Pulse Ox 94 01/17/23 04:54 O2 Del Method Room Air 01/17/23 04:54 BMI result Body Mass Index 52.8 Appearance: Alert. Oriented X3. No acute distress. Eyes: PERRLA, No Nystagmus ENT: Pharynx normal. Oral Mucosa moist Neck: Normal inspection. Neck supple. CVS: Normal heart rate and rhythm. Pulses normal. Respiratory: No respiratory distress. Equal air entry bilateral, no wheezing/rales/rhonchi tender left 2nd intercostal space Abdomen: Soft and nontender. Bowel sounds are present, no mass palpable, no CVA tenderness Skin: Skin warm and dry. Normal skin color. Normal skin turgor. Extremities: No lower extremity edema. No calf tenderness Neuro: Oriented X 3. No motor deficit. No sensory deficit.No cerebellar signs , cranial nerves II-XII intact Medications Administered Discontinued Medications Generic Name Dose Route Start Last Admin Trade Name Freq PRN Reason Stop Dose Admin Cyclobenzaprine HCl 10 mg 01/17/23 05:37 01/17/23 05:52 Cyclobenzaprine Hcl 10 Mg Tablet PO 01/17/23 05:38 10 mg ONCE ONE Administration Ketorolac Tromethamine 60 mg 01/17/23 05:37 01/17/23 05:52 Ketorolac Tromethamine 60 Mg/2 Ml Vial IM 01/17/23 05:38 60 mg ONCE ONE Administration Medical Decision Making Medical Decision Making [facility] Narrative: Patient with local tenderness left 2nd intercostal space with heart score of 0 , discharge patient home on anti-inflammatory Independent Interpretation I performed an independent interpretation of an: EKG Interpretation: Normal sinus rhythm heart rate 92 beats per minute normal interval normal axis no acute ST T wave changes no acute ischemia Discharge Plan Discharge Clinical Impression: Costalchondritis Patient Disposition: Home, Self-Care Instructions: Costochondritis (ED) Additional Instructions: Take pain medication and muscle relaxant as prescribed and follow with PCP Prescriptions: New cyclobenzaprine 10 mg tablet 10 mg PO Q8H Qty: 20 0RF ibuprofen 600 mg tablet 600 mg PO Q6H PRN (Reason: fever or pain) Qty: 30 0RF No Action sumatriptan succinate [Imitrex] 50 mg tablet 50 mg PO Q2H PRN (Reason: migraine headache) Qty: 10 0RF Rx Instructions: do not exceed 2 doses per 24 hrs jwyesnfqtm-xnadqtqqjozil-kimq [Fioricet] 50-300-40 mg capsule 1 cap PO Q6H PRN (Reason: headache) Qty: 20 0RF Interventions: ED Discharge Assessment Last Done: 01/17/23 06:18 Discharge Date/Time: 01/17/23 06:18
[2023-01-17] MEDS: Ketorolac Tromethamine 60 MG/2 ML VIAL IM (05:52)
[2023-01-17] MEDS: Cyclobenzaprine HCl 10 MG TABLET PO (05:52)
== END 2023-01-17 06:18 | disposition home or self-care (01) ==
PROVIDERS: Emergency Provider Internal Medicine
DX: M94.0 Chondrocostal junction syndrome [Tietze] (principal)
CPT/HCPCS: 93005; 96372; 99284; 99285; J1885

== ENCOUNTER → 2023-01-17 05:07 | Outpatient (BNV) | payer MEDICAID, SELFPAY | PROVIDERS: Emergency Provider Internal Medicine; Visit Provider Internal Medicine Cardiovascular Disease | DX: R07.9 Chest pain, unspecified (principal) | CPT/HCPCS: 93010 ==

== ENCOUNTER 2023-01-26 15:48 | Emergency (ER) | payer MEDICAID, SELFPAY ==
--- NOTE | ~2023-01-26 | XR_ITS ---
EXAMINATION: XR CHEST 2 VIEW CLINICAL INFORMATION: Cough COMPARISON: 01/15/2023 TECHNIQUE: PA and lateral views of the chest obtained. FINDINGS: The lungs are clear. There are no pleural effusions. The cardiomediastinal silhouette is normal. XR/XR chest 2V IMPRESSION: No acute cardiopulmonary disease or significant interval change.
--- NOTE | 2023-01-26 15:54 | ECG_ITS ---
Test Reason : chest pain Blood Pressure : / mmHG Vent. Rate : 088 BPM Atrial Rate : 088 BPM P-R Int : 144 ms QRS Dur : 074 ms QT Int : 342 ms P-R-T Axes : 041 003 004 degrees QTc Int : 413 ms Normal sinus rhythm Minimal voltage criteria for LVH, may be normal variant ( R in aVL ) Anterior infarct , age undetermined Abnormal ECG When compared with ECG of 17-JAN-2023 05:07, T wave amplitude has decreased in Lateral leads Referred By: Cassi Cornell Electronically Signed By:ZO SANCHEZ
[2023-01-26 16:08] VITALS: BP 150/102; PULSE 97; RESP 18; TEMP 36.3; O2SAT 95; BMI 50.7
--- NOTE | 2023-01-26 16:08 | ED.GENADULT ---
HPI - General Adult General Chief complaint: Headache Stated complaint: chest pain/migraine Related Data Previous Rx's Medication Instructions Recorded kfuhvxppdj-fdzurxgjqzcmv-tzsxpyfx 1 cap PO Q6H PRN headache #20 caps 01/16/23 50 mg-300 mg-40 mg capsule (Fioricet) sumatriptan succinate 50 mg tablet 50 mg PO Q2H PRN migraine headache 01/16/23 (Imitrex) #10 tabs cyclobenzaprine 10 mg tablet 10 mg PO Q8H #20 tabs 01/17/23 ibuprofen 600 mg tablet 600 mg PO Q6H PRN fever or pain 01/17/23 #30 tabs Allergies Allergy/AdvReac Type Severity Reaction Status Date / Time No Known Allergies Allergy Verified 01/15/23 22:53 [facility] Social History Social History Advance Directives: No Advance Directives Information Provided: No Physical Exam ED Vital Signs: BMI result Body Mass Index 50.7 Course Course Course Narrative: RME - 37 yo female with history of obesity and migraines who presents to the ER for evaluation of migraine headache and chest pain x3 weeks. Seen here January 16 and for the same - sent home with scripts for flexeril, ibuprofen, imitrex and fiorcet. Reports the chest pain is stabbing and intermittent but increasing in frequency prompting ER visit today. Pain is 6/10 for both the head and the chest. Plan: CXR, EKG done, treat pain and reassess Reevaluation(s) Reevaluation #1: patient eloped prior to full evaluation and treatment Discharge Plan Discharge Clinical Impression: Headache Patient Disposition: Elopement Prescriptions: No Action sumatriptan succinate [Imitrex] 50 mg tablet 50 mg PO Q2H PRN (Reason: migraine headache) Qty: 10 0RF Rx Instructions: do not exceed 2 doses per 24 hrs paoytqsnrj-tkchdtoxjnofl-vavh [Fioricet] 50-300-40 mg capsule 1 cap PO Q6H PRN (Reason: headache) Qty: 20 0RF cyclobenzaprine 10 mg tablet 10 mg PO Q8H Qty: 20 0RF ibuprofen 600 mg tablet 600 mg PO Q6H PRN (Reason: fever or pain) Qty: 30 0RF Interventions: ED Discharge Assessment Last Done: 01/26/23 19:36 Discharge Date/Time: 01/26/23 19:36
== END 2023-01-26 19:36 | disposition left against medical advice (07) ==
LOC: HO.ED 19:22
PROVIDERS: Emergency Provider Emergency Medicine
DX: R51.9 Headache, unspecified (principal); Z79.899 Other long term (current) drug therapy
CPT/HCPCS: 71046; 93005; 99283

== ENCOUNTER → 2023-01-26 15:54 | Outpatient (BNV) | payer MEDICAID, SELFPAY | PROVIDERS: Emergency Provider Emergency Medicine; Visit Provider Internal Medicine | DX: R94.31 Abnormal electrocardiogram [ECG] [EKG] (principal); R07.9 Chest pain, unspecified | CPT/HCPCS: 93010 ==

== ENCOUNTER 2023-06-04 17:02 | Emergency (ER) | payer MEDICAID, SELFPAY ==
--- NOTE | 2023-06-04 | ECG_ITS ---
Test Reason : chest pain Blood Pressure : / mmHG Vent. Rate : 101 BPM Atrial Rate : 101 BPM P-R Int : 146 ms QRS Dur : 074 ms QT Int : 324 ms P-R-T Axes : 043 023 014 degrees QTc Int : 420 ms Sinus tachycardia Minimal voltage criteria for LVH, may be normal variant ( R in aVL ) Borderline ECG When compared with ECG of 26-JAN-2023 15:59, No significant change was found Referred By: Generic ED Physician Electronically Signed By:ZO SANCHEZ
--- NOTE | ~2023-06-04 | XR_ITS ---
EXAMINATION: XR CHEST CLINICAL INFORMATION: Pain. COMPARISON: Chest radiograph 01/26/2023. TECHNIQUE: 2 views of the chest were obtained. FINDINGS: Normal appearance of the cardiomediastinal silhouette. No focal airspace opacity, pleural effusion or pneumothorax. No acute osseous findings. Visualized upper abdomen is within normal limits. XR/XR chest 2V IMPRESSION: No acute cardiopulmonary findings.
[2023-06-04 17:30] VITALS: BP 149/99; PULSE 94; RESP 16; TEMP 36.5; O2SAT 96; BMI 48.1
--- NOTE | 2023-06-04 17:30 | ED_ITS ---
HPI - General Adult General Chief complaint: Chest Pain Stated complaint: chest pain Related Data Previous Rx's Medication Instructions Recorded jlwtwbcdrc-uwnfxpimksirj-kmywxdtu 1 cap PO Q6H PRN headache #20 caps 01/16/23 50 mg-300 mg-40 mg capsule (Fioricet) sumatriptan succinate 50 mg tablet 50 mg PO Q2H PRN migraine headache 01/16/23 (Imitrex) #10 tabs cyclobenzaprine 10 mg tablet 10 mg PO Q8H #20 tabs 01/17/23 ibuprofen 600 mg tablet 600 mg PO Q6H PRN fever or pain 01/17/23 #30 tabs Allergies Allergy/AdvReac Type Severity Reaction Status Date / Time No Known Allergies Allergy Verified 06/04/23 17:30 Physical Exam ED Vital Signs: BMI result Body Mass Index 48.1 Course Course Course Narrative: 38 year old primarily Solomon Islander speaking female presents for evaluation of chest pain for the last 7 months. She states that today she had some associated shortness of breath and coughing blood tinged sputum. Plan for labs, EKG, x-ray Medical Decision Making Lab Data 06/04/23 17:45 06/04/23 17:45 Labs: Lab Results 06/04/23 Range/Units 17:45 WBC 8.3 (4.8-10.8) X10*3/uL RBC 4.86 (4.20-5.50) X10*6/uL Hgb 13.6 (12.0-16.0) g/dl Hct 40.6 (37.0-47.0) % MCV 83.5 (80.0-98.0) fL MCH 28.0 (27.0-33.0) pg MCHC 33.5 (31.0-35.0) g/dl RDW 13.2 (11.0-16.0) % Plt Count 248 (160-400) X10*3/uL MPV 12.0 (9.4-12.3) fL Immature Gran % (Auto) 0.4 (0.0-0.4) % Neut % (Auto) 54.9 (45-73) % Lymph % (Auto) 37.0 (20-40) % [place] % (Auto) 5.6 (2-11) % Eos % (Auto) 1.7 (0-4) % Baso % (Auto) 0.4 (0-2) % Lymph # (Auto) 3.1 (1.2-4.9) X10*3/uL [place] # (Auto) 0.5 (0.1-1.2) X10*3/uL Eos # (Auto) 0.1 (0.0-0.4) X10*3/uL Baso # (Auto) 0.0 (0.0-0.2) X10*3/uL Abs Immat Gran (auto) 0.03 (0.00-0.03) X10*3/uL Absolute Neuts (auto) 4.6 (2.0-8.3) x10*3/uL Absolute Nucleated RBC 0.000 (0.0-0.012) X10*3/uL Nucleated RBC % (auto) 0.0 (0.0-0.2) /100WBC PT 11.7 (11.1-13.3) SEC INR 1.0 (0.9-1.1) Sodium 140 (135-145) mmol/L Potassium 3.8 (3.3-5.1) mmol/L Chloride 105 (96-108) mmol/L Carbon Dioxide 26 (22-29) mmol/L Anion Gap 13 (12-20) BUN 10 (9-16) mg/dL Creatinine 0.70 (0.5-1.4) mg/dL Estim Creat Clear Calc 143.8 Estimated GFR > 60 Random Glucose 193 H (60-115) mg/dL Calcium 9.4 (8.4-10.2) mg/dL Total Bilirubin 0.3 (0.0-1.0) mg/dL AST 18 (5-31) U/L ALT 21 (0-31) U/L Alkaline Phosphatase 88 (39-117) U/L Troponin I High Sens < 2.7 (<3.5-17.0) ng/L Total Protein 7.4 (6.5-8.0) g/dL Albumin 4.2 (3.5-5.0) g/dL Lipase 21 (8-78) U/L Beta HCG, Quant < 2 mIU/mL Discharge Plan Discharge Clinical Impression: Chest pain Patient Disposition: Left W/O Completing Treatment Prescriptions: No Action sumatriptan succinate [Imitrex] 50 mg tablet 50 mg PO Q2H PRN (Reason: migraine headache) Qty: 10 0RF Rx Instructions: do not exceed 2 doses per 24 hrs bgcuvulbyd-snbyrxgsebfte-wegj [Fioricet] 50-300-40 mg capsule 1 cap PO Q6H PRN (Reason: headache) Qty: 20 0RF cyclobenzaprine 10 mg tablet 10 mg PO Q8H Qty: 20 0RF ibuprofen 600 mg tablet 600 mg PO Q6H PRN (Reason: fever or pain) Qty: 30 0RF Discharge Date/Time: 06/04/23 21:27
[2023-06-04 17:49] LABS: MANUAL DIFF FLAG NO
[2023-06-04 17:53] LABS: Basophils Percent Auto 0.4 % (0-2); Eosinophils Absolute Auto 0.1 X10*3/uL (0.0-0.4); Eosinophils Percent Auto 1.7 % (0-4); Hematocrit 40.6 % (37.0-47.0); Hemoglobin 13.6 g/dl (12.0-16.0); Imm Gran Abs Auto 0.03 X10*3/uL (0.00-0.03); Imm Gran Pct Auto 0.4 % (0.0-0.4); Lymphocytes Absolute Auto 3.1 X10*3/uL (1.2-4.9); Mean Corpuscular HGB Conc 33.5 g/dl (31.0-35.0); Mean Corpuscular Volume 83.5 fL (80.0-98.0); Monocytes Absolute Auto 0.5 X10*3/uL (0.1-1.2); Monocytes Percent Auto 5.6 % (2-11); Neutrophils Absolute Auto 4.6 x10*3/uL (2.0-8.3); Neutrophils Percent Auto 54.9 % (45-73); Platelet Count 248 X10*3/uL (160-400); Red Blood Count 4.86 X10*6/uL (4.20-5.50); Red Cell Distribution Width 13.2 % (11.0-16.0); White Blood Count 8.3 X10*3/uL (4.8-10.8)
[2023-06-04 17:57] LABS: Prothrombin Time 11.7 SEC (11.1-13.3)
[2023-06-04 18:13] LABS: Alanine Aminotransferase 21 U/L (0-31); Albumin Level 4.2 g/dL (3.5-5.0); Alkaline Phosphatase 88 U/L (39-117); Anion Gap 13 (12-20); Aspartate Amino Transferase 18 U/L (5-31); Bilirubin Total 0.3 mg/dL (0.0-1.0); Blood Urea Nitrogen 10 mg/dL (9-16); Calcium 9.4 mg/dL (8.4-10.2); Carbon Dioxide 26 mmol/L (22-29); Chloride 105 mmol/L (96-108); Creatinine Clr Calc Pharmacy 143.8; Estimated Glomerular Filt Rate > 60; Glucose Random 193 mg/dL (60-115); Lipase 21 U/L (8-78); Potassium 3.8 mmol/L (3.3-5.1); Sodium 140 mmol/L (135-145); Total Protein 7.4 g/dL (6.5-8.0)
[2023-06-04 18:17] LABS: HCG Quantitative < 2 mIU/mL; Troponin-I High Sensitivity < 2.7 ng/L (<3.5-17.0)
== END 2023-06-04 21:27 | disposition left against medical advice (07) ==
PROVIDERS: Physician Assistant; Emergency Provider Emergency Medicine
DX: R07.89 Other chest pain (principal); R06.02 Shortness of breath; R05.9 Cough, unspecified; Z79.899 Other long term (current) drug therapy
CPT/HCPCS: 36415; 71046; 80053; 83690; 84484; 84702; 85025; 85610; 93005; 99283

== ENCOUNTER → 2023-06-04 17:07 | Outpatient (BNV) | payer MEDICAID, SELFPAY | PROVIDERS: Emergency Provider Emergency Medicine; Visit Provider Internal Medicine | DX: R00.0 Tachycardia, unspecified (principal); R07.9 Chest pain, unspecified | CPT/HCPCS: 93010 ==

== ENCOUNTER 2023-07-07 14:30 | Outpatient (REF) | payer MEDICAID, SELFPAY ==
--- NOTE | ~2023-07-07 | US_ITS ---
EXAMINATION: MM DIAGNOSTIC DIGITAL BREAST TOMOSYNTHESIS, BILATERAL US BREAST LIMITED, BILATERAL MAMMOGRAPHY: CLINICAL INFORMATION: Bilateral breast pain globally. 38-year-old female. Baseline examination. COMPARISON: Mammography: None. Baseline exam. TECHNIQUE: Digital breast tomosynthesis is performed in both the craniocaudal and mediolateral oblique views along with computer-aided detection (CAD). Synthesized 2D images are generated from the tomosynthesis. In addition, extra bilateral MLO nipple in profile 3-D full-field images were obtained. FINDINGS: The breasts are almost entirely fatty (ACR BI-RADS breast composition Category a). There is a small oval circumscribed mass at the 8:00 axis in the right breast, middle one third, for which ultrasound will be performed. There is also a similar small oval circumscribed isodense mass in the left breast anterior one third, approximately 8:00 axis. This will also be evaluated by ultrasound. Otherwise, there are no abnormalities in either breast on mammography to correlate with the complaint of global breast pain. There are no suspicious masses, suspicious grouped calcifications, or areas of architectural distortion in either breast. There are no skin or axillary abnormalities. ULTRASOUND: CLINICAL INFORMATION: As above. Bilateral global breast pain. Baseline examination. COMPARISON: None TECHNIQUE: Targeted sonographic evaluation was performed using a high frequency linear transducer. Attention was given to both breasts globally in the region of breast pain, as well as the bilateral 8:00 axis small masses. Selected archived documentation. FINDINGS: RIGHT BREAST: There is predominantly fatty breast tissue. In the 8:00 axis, 7 cm from the nipple, there is a benign intramammary lymph node with normal fatty hilum, correlating with the mass seen on mammography. This is benign. No additional ultrasonographic abnormalities are identified within the right breast. LEFT BREAST: There is probably fatty breast tissue. In the 8:00 axis, 8 cm from the nipple, there is a hypoechoic well-circumscribed mass, oval in shape, no definite posterior features, no internal color Doppler flow, positive pseudocapsule, measuring 0.8 cm in length, most likely an incidental fibroadenoma. Six-month interval follow-up diagnostic left breast ultrasound recommended to ensure stability. Otherwise, no suspicious findings on ultrasound within the left breast. US/US breast BI limited mamm only IMPRESSION: No findings suspicious for malignancy in either breast. LEFT breast 8:00 oval circumscribed mass, probable fibroadenoma, 8 cm from the nipple, for which six-month interval follow-up targeted left breast ultrasound recommended. Otherwise, no mammographic or sonographic correlate identified to explain LEFT breast pain. RIGHT breast 8:00 benign intramammary lymph node present. Otherwise, no mammographic or sonographic correlate identified to explain RIGHT breast pain. Recommend clinical management of the patient's bilateral symptomatology. OVERALL ASSESSMENT: Mammography: BI-RADS 3 - Probably benign finding(s) - 6 month follow-up suggested Ultrasound: BI-RADS 3 - Probably benign finding(s) - 6 month follow-up suggested RECOMMENDATION: 6 Month F/U This patient's information was entered into a reminder system with a target due date for their next mammogram.
== END 2023-07-07 14:31 | disposition home or self-care (01) ==
LOC: HO.MAMMO 14:30
PROVIDERS: PCP Family Medicine; Visit Provider Family Medicine
DX: N64.4 Mastodynia (principal)
CPT/HCPCS: 76642; 77062; 77066

== ENCOUNTER → 2023-07-07 14:30 | Outpatient (BNV) | payer MEDICAID, SELFPAY | PROVIDERS: PCP Family Medicine; Visit Provider Radiology Diagnostic Radiology | DX: N63.13 Unspecified lump in the right breast, lower outer quadrant (principal); N63.24 Unspecified lump in the left breast, lower inner quadrant | CPT/HCPCS: 76642; 77062; 77066 ==

== ENCOUNTER 2023-10-21 17:42 | Emergency (ER) | payer MEDICAID, SELFPAY ==
--- NOTE | ~2023-10-21 | XR_ITS ---
EXAMINATION: XR CHEST CLINICAL INFORMATION: Chest pain. COMPARISON: 06/04/2023 TECHNIQUE: 2 views of the chest were obtained. FINDINGS: No significant abnormality is noted involving the heart, lungs, mediastinum, bony thorax or soft tissues. XR/XR chest 2V IMPRESSION: Unremarkable examination.
--- NOTE | 2023-10-21 17:44 | ECG_ITS ---
Test Reason : CHEST PAIN Blood Pressure : / mmHG Vent. Rate : 103 BPM Atrial Rate : 103 BPM P-R Int : 146 ms QRS Dur : 070 ms QT Int : 308 ms P-R-T Axes : 041 018 016 degrees QTc Int : 403 ms Sinus tachycardia Minimal voltage criteria for LVH, may be normal variant ( R in aVL ) Borderline ECG When compared with ECG of 04-JUN-2023 17:07, No significant change was found Referred By: Mary Rod Electronically Signed By:KARINA CORDOBA MD
[2023-10-21 17:53] VITALS: BP 142/95; PULSE 106; RESP 20; TEMP 36.8; O2SAT 96; BMI 53.6
--- NOTE | 2023-10-21 17:54 | ED.GENADULT ---
HPI - General Adult General Chief complaint: General Medical Stated complaint: chest pain since yesterday when breathing Time Seen by Provider: 10/21/23 22:45 History of Present Illness HPI narrative: The patient is a 38-year-old woman comes for evaluation of right upper chest pain that is worse when she breathes. She has not really had any shortness of breath. She reports pain in both of her lower legs. No fever, sweats, chills. No cough or sputum. Related Data Previous Rx's ?Medication ?Instructions ?Recorded zevdgjvsye-wdyucfhjjugyn-xoftfurh 1 cap PO Q6H PRN headache #20 caps 01/16/23 50 mg-300 mg-40 mg capsule (Fioricet) sumatriptan succinate 50 mg tablet 50 mg PO Q2H PRN migraine headache 01/16/23 (Imitrex) #10 tabs cyclobenzaprine 10 mg tablet 10 mg PO Q8H #20 tabs 01/17/23 ibuprofen 600 mg tablet 600 mg PO Q6H PRN fever or pain 01/17/23 #30 tabs Allergies Allergy/AdvReac Type Severity Reaction Status Date / Time No Known Allergies Allergy Verified 10/21/23 17:55 Review of Systems Review of Systems: Yes all other systems are reviewed and are negative [facility] Social History Social History Advance Directives: No Advance Directives Information Provided: No Do you have a plan to hurt others: No Plan Physical Exam ED Vital Signs: Vital Signs - 24 hr 10/21/23 17:53 10/21/23 21:14 10/21/23 22:16 Temperature 98.2 F 97.0 F 98.3 F Pulse Rate 106 H 93 99 Respiratory Rate 20 19 16 Blood Pressure 142/95 H 151/77 H 135/90 H Pulse Oximetry 96 97 93 Oxygen Delivery Method Room Air Room Air Room Air 10/22/23 01:10 Temperature 98.3 F Pulse Rate 99 Respiratory Rate 16 Blood Pressure 135/90 H Pulse Oximetry 93 Oxygen Delivery Method BMI result Body Mass Index 53.6 Const Other: The patient is a morbidly obese 38-year-old female, BMI 53.6, who was awake and alert and does not appear in obvious distress. HENMT Other: Symmetrical. Mucous membranes moist. Eyes Other: Pupils are round equal, conjunctivae are clear Neck Other: Neck veins not visible. Moving her neck easily. Chest Other: There is chest wall tenderness with palpation of the right upper chest. Palpation seems to reproduce her pain. Resp Effort & Inspection: normal respiratory effort Auscultation: clear to auscultation bilaterally Cardio Rate: regular rate Rhythm: regular rhythm Heart sounds: S1 normal heart sound present and S2 normal heart sound present GI Other: Abdomen is soft and nontender Skin Other: Skin is dry and unremarkable Neuro Other: The patient is awake and alert with a normal mental status. Cranial nerves are grossly intact, she moves all extremities normally Extrem Other: The patient has very thick lower legs bilaterally. No pitting edema. No obvious asymmetry. Course Course Course Narrative: This is a rapid medical exam: Additional HPI, ROS, PE not included below will be deferred to primary provider. Patient is a 38-year-old female with complaint of right sided chest pain with inspiration since yesterday. Rates pain at 9/10. Denies known history of clots. Denies any cough or dyspnea. Plan: EKG, labs Medical Decision Making Medical Decision Making MDM Narrative: The patient presents with right upper chest pain which is worse with breathing. Clinically the patient does not appear obviously acutely ill and clinically her pain seems most likely to represent chest wall pain. Her pain was reproducible with palpation. The patient's labs were all quite reassuring with a negative troponin and an undetectable D-dimer. She also had a negative chest x-ray. After reassuring the patient that no dangerous process seemed to be at work the patient then spoke at length about how said she has been since her grandmother 11 months ago. I think there is a large griief component to the patient's symptoms. She has not suicidal. She is advised to follow up with her regular doctor. Lab Data 10/21/23 18:22 10/21/23 18:22 Labs: Lab Results 10/21/23 Range/Units 18:22 WBC 8.9 (4.8-10.8) X10*3/uL RBC 4.85 (4.20-5.50) X10*6/uL Hgb 13.3 (12.0-16.0) g/dl Hct 40.0 (37.0-47.0) % MCV 82.5 (80.0-98.0) fL MCH 27.4 (27.0-33.0) pg MCHC 33.3 (31.0-35.0) g/dl RDW 13.2 (11.0-16.0) % Plt Count 238 (160-400) X10*3/uL MPV 12.2 (9.4-12.3) fL Immature Gran % (Auto) 0.5 H (0.0-0.4) % Neut % (Auto) 58.9 (45-73) % Lymph % (Auto) 31.9 (20-40) % [place] % (Auto) 6.7 (2-11) % Eos % (Auto) 1.7 (0-4) % Baso % (Auto) 0.3 (0-2) % Lymph # (Auto) 2.8 (1.2-4.9) X10*3/uL [place] # (Auto) 0.6 (0.1-1.2) X10*3/uL Eos # (Auto) 0.2 (0.0-0.4) X10*3/uL Baso # (Auto) 0.0 (0.0-0.2) X10*3/uL Abs Immat Gran (auto) 0.04 H (0.00-0.03) X10*3/uL Absolute Neuts (auto) 5.2 (2.0-8.3) x10*3/uL Absolute Nucleated RBC 0.000 (0.0-0.012) X10*3/uL Nucleated RBC % (auto) 0.0 (0.0-0.2) /100WBC PT 12.0 (11.1-13.3) SEC INR 1.0 (0.9-1.1) D-Dimer High Sensitivty < 150 NG/ML Sodium 140 (135-145) mmol/L Potassium 3.8 (3.3-5.1) mmol/L Chloride 105 (96-108) mmol/L Carbon Dioxide 27 (22-29) mmol/L Anion Gap 12 (12-20) BUN 12 (9-16) mg/dL Creatinine 0.85 (0.5-1.4) mg/dL Estim Creat Clear Calc 122.3 Estimated GFR > 60 Random Glucose 201 H (60-115) mg/dL Calcium 8.8 D (8.4-10.2) mg/dL Total Bilirubin 0.3 (0.0-1.0) mg/dL AST 18 (5-31) U/L ALT 20 (0-31) U/L Alkaline Phosphatase 76 (39-117) U/L Troponin I High Sens < 2.7 (<3.5-17.0) ng/L Total Protein 7.4 (6.5-8.0) g/dL Albumin 4.0 (3.5-5.0) g/dL Independent Interpretation I performed an independent interpretation of an: EKG Interpretation: EKG at 17:44 shows sinus tachycardia at 103 beats per minute. No definite acute changes, no change from previous EKG Discharge Plan Discharge Clinical Impression: Acute chest wall pain Patient Disposition: Home, Self-Care Additional Instructions: Your testing in the emergency room today is very reassuring from the point of view of any dangerous process. I believe that the pain is coming from the muscles or the bones in your chest wall. It is possible this pain could be related to the stress you have been experiencing. You may use ibuprofen and acetaminophen as needed for pain. Please plan on following up soon with the [facility]. Call in the morning to set up a follow up appointment soon. You should also get your blood pressure [facility]. Return to the emergency room if significantly worse. Prescriptions: No Action sumatriptan succinate [Imitrex] 50 mg tablet 50 mg PO Q2H PRN (Reason: migraine headache) Qty: 10 0RF Rx Instructions: do not exceed 2 doses per 24 hrs jpugxcgwgf-zuzdpdpycelvm-onpi [Fioricet] 50-300-40 mg capsule 1 cap PO Q6H PRN (Reason: headache) Qty: 20 0RF cyclobenzaprine 10 mg tablet 10 mg PO Q8H Qty: 20 0RF ibuprofen 600 mg tablet 600 mg PO Q6H PRN (Reason: fever or pain) Qty: 30 0RF Referrals: [facility] [Provider Group] (Chest wall pain) Interventions: ED Discharge Assessment Last Done: 10/22/23 01:10 Discharge Date/Time: 10/22/23 01:12 Print Language: Honduran
[2023-10-21 18:27] LABS: MANUAL DIFF FLAG NO
[2023-10-21 18:36] LABS: Basophils Percent Auto 0.3 % (0-2); Eosinophils Absolute Auto 0.2 X10*3/uL (0.0-0.4); Eosinophils Percent Auto 1.7 % (0-4); Hemoglobin 13.3 g/dl (12.0-16.0); Imm Gran Abs Auto 0.04 X10*3/uL (0.00-0.03); Imm Gran Pct Auto 0.5 % (0.0-0.4); Lymphocytes Absolute Auto 2.8 X10*3/uL (1.2-4.9); Lymphocytes Percent Auto 31.9 % (20-40); Mean Corpuscular HGB Conc 33.3 g/dl (31.0-35.0); Mean Corpuscular Hemoglobin 27.4 pg (27.0-33.0); Mean Corpuscular Volume 82.5 fL (80.0-98.0); Mean Platelet Volume 12.2 fL (9.4-12.3); Monocytes Absolute Auto 0.6 X10*3/uL (0.1-1.2); Monocytes Percent Auto 6.7 % (2-11); Neutrophils Absolute Auto 5.2 x10*3/uL (2.0-8.3); Neutrophils Percent Auto 58.9 % (45-73); Platelet Count 238 X10*3/uL (160-400); Red Blood Count 4.85 X10*6/uL (4.20-5.50); Red Cell Distribution Width 13.2 % (11.0-16.0); White Blood Count 8.9 X10*3/uL (4.8-10.8)
[2023-10-21 18:46] LABS: Alkaline Phosphatase 76 U/L (39-117); Anion Gap 12 (12-20); Aspartate Amino Transferase 18 U/L (5-31); Bilirubin Total 0.3 mg/dL (0.0-1.0); Blood Urea Nitrogen 12 mg/dL (9-16); Calcium 8.8 mg/dL (8.4-10.2); Carbon Dioxide 27 mmol/L (22-29); Chloride 105 mmol/L (96-108); Creatinine Clr Calc Pharmacy 122.3; Estimated Glomerular Filt Rate > 60; Glucose Random 201 mg/dL (60-115); Potassium 3.8 mmol/L (3.3-5.1); Sodium 140 mmol/L (135-145); Total Protein 7.4 g/dL (6.5-8.0)
[2023-10-21 18:52] LABS: Troponin-I High Sensitivity < 2.7 ng/L (<3.5-17.0)
[2023-10-21 18:57] LABS: Alanine Aminotransferase 20 U/L (0-31)
[2023-10-21 21:14] VITALS: BP 151/77; PULSE 93; RESP 19; TEMP 36.1; O2SAT 97
[2023-10-21 22:16] VITALS: BP 135/90; PULSE 99; RESP 16; TEMP 36.8; O2SAT 93
[2023-10-21 23:07] LABS: D Dimer High Sensitivity < 150 NG/ML
[2023-10-22 01:10] VITALS: BP 135/90; PULSE 99; RESP 16; TEMP 36.8; O2SAT 93
== END 2023-10-22 01:12 | disposition home or self-care (01) ==
PROVIDERS: Registered Nurse Emergency; Emergency Provider Emergency Medicine
DX: R07.89 Other chest pain (principal); R06.02 Shortness of breath; M79.605 Pain in left leg; M79.604 Pain in right leg; Z79.899 Other long term (current) drug therapy
CPT/HCPCS: 36415; 71046; 80053; 84484; 85025; 85379; 85610; 93005; 99283; 99284

== ENCOUNTER → 2023-10-21 17:44 | Outpatient (BNV) | payer MEDICAID, SELFPAY | PROVIDERS: Emergency Provider Emergency Medicine; Visit Provider Internal Medicine Cardiovascular Disease | DX: R07.9 Chest pain, unspecified (principal); R00.0 Tachycardia, unspecified | CPT/HCPCS: 93010 ==

== ENCOUNTER 2024-01-04 14:44 | Outpatient (REF) | payer MEDICAID, SELFPAY ==
[2024-01-04 18:02] LABS: Anion Gap 14 (12-20); Blood Urea Nitrogen 13 mg/dL (9-16); Carbon Dioxide 30 mmol/L (22-29); Chloride 98 mmol/L (96-108); Estimated Glomerular Filt Rate > 60; Glucose Random 248 mg/dL (60-115); Potassium 3.4 mmol/L (3.3-5.1); Sodium 139 mmol/L (135-145)
[2024-01-05 08:27] LABS: ~HepC Num1 0.09 S/CO (0.00-0.79); ~Hepatitis C Antibody Nonreactive (Nonreactive)
== END 2024-01-04 14:45 | disposition home or self-care (01) ==
LOC: HO.CHCLDS 14:44
PROVIDERS: Visit Provider Internal Medicine
DX: I10 Essential (primary) hypertension (principal); F34.1 Dysthymic disorder
CPT/HCPCS: 36415; 80048; 86803

== ENCOUNTER 2024-01-06 15:17 | Outpatient (REF) | payer MEDICAID, SELFPAY ==
--- NOTE | ~2024-01-06 | US_ITS ---
EXAMINATION: US DIAGNOSTIC ULTRASOUND BREAST, LEFT CLINICAL INFORMATION: 6 month follow-up complicated cyst versus mass 8:00 axis, 8 cm from the nipple.. COMPARISON: 07/07/2023. TECHNIQUE: Ultrasound of the left breast is performed with real-time khan scale imaging and color Doppler. Attention was given to the lower inner quadrant. FINDINGS: There is predominantly fatty breast tissue. In the 8:00 axis, 8 cm from the nipple, there is a stable hypoechoic well-circumscribed mass versus complex cyst, oval in shape, no definite posterior features, no internal color Doppler flow, no surrounding parenchymal or fat changes, measuring 0.9 cm in length. This is unchanged in size and morphology. Finding remains probably benign. US/US breast LT limited mamm only IMPRESSION: Stable probably benign circumscribed oval mass versus complicated cyst left breast 8:00 axis measuring 9 mm. Six-month interval follow-up diagnostic left breast ultrasound recommended to ensure stability. Goal is to establish a two-year stability, and hence benignity. ASSESSMENT: BI-RADS 3 - Probably benign finding(s) - 6 month follow-up suggested RECOMMENDATION: 6 Month F/U This patient's information was entered into a reminder system with a target due date for their next mammogram.
== END 2024-01-06 15:18 | disposition home or self-care (01) ==
LOC: HO.MAMMO 15:17
PROVIDERS: PCP Internal Medicine; Visit Provider Family Medicine
DX: R92.2 Inconclusive mammogram (principal)
CPT/HCPCS: 76642

== ENCOUNTER → 2024-01-06 15:30 | Outpatient (BNV) | payer MEDICAID, SELFPAY | PROVIDERS: PCP Internal Medicine; Visit Provider Radiology Diagnostic Radiology | DX: N63.24 Unspecified lump in the left breast, lower inner quadrant (principal) | CPT/HCPCS: 76642 ==

== ENCOUNTER 2024-12-08 09:51 | Outpatient (REF) | payer MEDICAID, SELFPAY ==
--- NOTE | ~2024-12-08 | US_ITS ---
EXAMINATION: US DIAGNOSTIC ULTRASOUND BREAST, LEFT CLINICAL INFORMATION: 1 year follow-up ultrasound for solid mass versus complicated cyst at 8:00 8 cm from the nipple.. COMPARISON: Comparison is made with relevant prior imaging. TECHNIQUE: Ultrasound of the breast is performed with real-time khan scale imaging and color Doppler. FINDINGS: Targeted color Doppler ultrasound in the left breast at 8:00 8 cm from the nipple again demonstrates a hypoechoic oval parallel circumscribed solid mass versus complicated cyst measuring 6 x 5 x 9 mm which overall given differences in measuring technique and imaging is not significantly changed from priors dating back for one year. There is no internal vascular flow. Results are discussed with the patient at time of visit. US/US breast LT limited mamm only IMPRESSION: Hypoechoic oval circumscribed solid mass at 8:00 8 cm from the nipple in the left breast not significantly changed from prior ultrasounds for one year. Recommend one-year follow-up when the patient is due for bilateral mammography to demonstrate stability. ASSESSMENT: BI-RADS 3: Probably Benign RECOMMENDATION: Diagnostic mammography at time of next annual exam, due in 12 months. This patient's information was entered into a reminder system with a target due date for their next mammogram. Electronically signed by: Cherise Linares DO 12/08/2024 03:15 PM EDT
--- OUTSIDE RECORDS SUMMARY | 2024-12-08 10:28 | XMS_ITS | Encounter Summary ---
Author Organization [employer] Address [address] [place] [address] [address]t [address] Floor [place] [id number] Care Team Providers Care Equipment Manager Name Role Phone Rosa Isela Neves MD Primary Care Provider [phone] Xin Rodriguez MD Primary Care Provider [phone] Reason for Visit * Reason Onset Date Comments New Patient Appt 12/23/2022 Encounter Details Date Type Department Care Team ([facility] st Contact Info) Description 12/23/2022 Telephone [facility] MEDICINE [address] [place], [place] [phone] Lincoln Mireles MD [address] [place], [place] [phone] New Patient Appt Social History Tobacco Use Types Packs/Day Years Used Date Smoking Tobacco: Never Assessed Comments Unknown Sex and Gender Information Value Date Recorded Sex Assigned at Female 04/27/2022 10:18 AM EDT Legal Sex Female 10:18 AM EDT Gender Identity Female 04/27/2022 10:18 AM EDT Sexual Orientation Straight 04/27/2022 10 :18 AM EDT documented as of this encounter Miscellaneous Notes * Telephone Encounter - Frances Wells - 01/12/2023 10:46 AM EDT PAR Frances Preston called pt to Offer DEATH CLAIM CLERK appt. Pt demographics and insurance information were verified. Pt reports the following medical conditions: BP, Pre- Diabetic and Migraines. Pt is currently taking medication: Yes ( would like to discuss with PCP). Pt given DEATH CLAIM CLERK appt with Dr. Rosa Isela Neves on 02/25/2023 @ 1:00 pm. Pt will be sent appt reminder card and medical release form and agrees to complete and to return to medical records prior to DEATH CLAIM CLERK appt. * Telephone Encounter - Frances Wells - 12/23/2022 9:16 AM EDT Tc to [facility] to Offer DEATH CLAIM CLERK Appt; Pt responded and was informed that we do not take his insurance to please change to C3; once the process is complete, to please call back at [phone] to get appt as soon as possible. documented in this encounter Plan of Treatment Upcoming Encounters Date Type Department Care Team (Late st Contact Info) Description 12/12/2024 11:00 AM EDT Office Visit [facility] OPTOMETRY [address] [place] [address] 01/18/2025 1:15 PM EDT Office Visit [facility] CHC MED & PEDS [address] [place] [address] Xin Rodriguez MD [address] [place] [address] documented as of this encounter Visit Diagnoses Not on filedocumented in this encounter Care Teams Equipment Manager Relationship Specialty Start Date End Date Rosa Isela Neves MD [address] [place] [id number] PCP - General Family Medicine 02/25/23 01/03/24 Xin Rodriguez MD [address] [place] [address] PCP - General Internal Medicine 01/04/24 documented as of this encounter
== END 2024-12-08 09:52 | disposition home or self-care (01) ==
LOC: HO.MAMMO 09:51
PROVIDERS: Visit Provider Internal Medicine
DX: R92.2 Inconclusive mammogram (principal)
CPT/HCPCS: 76642

== ENCOUNTER → 2024-12-08 10:30 | Outpatient (BNV) | payer MEDICAID, SELFPAY | PROVIDERS: Visit Provider Internal Medicine | DX: N63.21 Unspecified lump in the left breast, upper outer quadrant (principal) | CPT/HCPCS: 76642 ==

== ENCOUNTER 2025-01-22 11:32 | Outpatient (REF) | payer MEDICAID, SELFPAY ==
--- OUTSIDE RECORDS SUMMARY | 2025-01-22 12:49 | XMS_ITS | Encounter Summary ---
Author Organization [employer] Address [address] [place] [address] [address]t [address] [place] [phone] Care Team Providers Care Computer Science Teacher Name Role Phone Rosa Isela Neves MD Primary Care Provider [phone] Xin Rodriguez MD Primary Care Provider [phone] Reason for Visit * Reason Onset Date Comments New Patient Appt 12/23/2022 Encounter Details Date Type Department Care Team ([facility] st Contact Info) Description 12/23/2022 Telephone [facility] MEDICINE [address] [place], [place] [phone] Lincoln Mireles MD [address] [place], [place] [phone] New Patient Appt Social History Tobacco Use [...] PAR Frances Preston called pt to Offer COMPOSITION ROOFER appt. Pt demographics and insurance information were verified. Pt reports the following medical conditions: BP, Pre- Diabetic and Migraines. Pt is currently taking medication: Yes ( would like to discuss with PCP). Pt given COMPOSITION ROOFER appt with Dr. Rosa Isela Neves on 02/25/2023 @ 1:00 pm. Pt will be sent appt reminder card and medical release form and agrees to complete and to return to medical records prior to COMPOSITION ROOFER appt. * Telephone Encounter - Frances Wells - 12/23/2022 9:16 AM EDT Tc to [facility] to Offer COMPOSITION ROOFER Appt; Pt responded and was informed that we do not take his insurance to please change to C3; once the process is complete, to please call back at [phone] to get appt as soon as possible. documented in this encounter Plan of Treatment Upcoming Encounters Date Type Department Care Team (Late st Contact Info) Description 02/22/2025 1:15 PM EDT Office Visit [facility] CHC MED & PEDS [address] [place] [address] Xin Rodriguez MD [address] [place] [address] documented as of this encounter Visit Diagnoses Not on filedocumented in this encounter Care Teams Computer Science Teacher Relationship Specialty Start Date End Date Rosa Isela Neves MD [address] [place] [address] PCP - General Family Medicine 02/25/23 01/03/24 Xin Rodriguez MD [address] [place] [address] PCP - General Internal Medicine 01/04/24 documented as of this encounter
--- OUTSIDE RECORDS SUMMARY | 2025-01-22 12:49 | XMS_ITS ---
Author Name [facility] Organization Unknown Care Team Organization Name Specialty Phone Email Start Date End Da te [facility] Jorge Luis Cid Primary Care 09/02/20222023 [facility] Ml Rosen Primary Care 05/05/20222023
[2025-01-22 15:27] LABS: Alanine Aminotransferase 19 U/L (0-31); Albumin Level 4.1 g/dL (3.5-5.0); Alkaline Phosphatase 80 U/L (39-117); Anion Gap 15 (12-20); Aspartate Amino Transferase 16 U/L (5-31); Blood Urea Nitrogen 12 mg/dL (9-16); Calcium 9.2 mg/dL (8.4-10.2); Carbon Dioxide 26 mmol/L (22-29); Chloride 102 mmol/L (96-108); Estimated Glomerular Filt Rate > 60; Potassium 3.9 mmol/L (3.3-5.1); Sodium 139 mmol/L (135-145); Total Protein 7.1 g/dL (6.5-8.0)
== END 2025-01-22 11:33 | disposition home or self-care (01) ==
LOC: HO.CHCLDS 11:32
PROVIDERS: Visit Provider Internal Medicine
DX: I10 Essential (primary) hypertension (principal); E66.813 Obesity, class 3; Z68.43 Body mass index [BMI] 50.0-59.9, adult
CPT/HCPCS: 36415; 80053; 84443